=== PATIENT | female | born 1980 | race Caucasian/White ===

== ENCOUNTER 2019-12-19 22:31 | Emergency (ER) | payer OTHER ==
[~2019-12-19] VITALS: Ht 157.5 cm; Wt 65.0 kg
--- NOTE | 2019-12-19 23:15 | PHYS DOC ---
Past Medical History Past Medical History: No Pertinent History Past Surgical History: Cholecystectomy Smoking Status: Current Every Day Smoker Alcohol Use: None Drug Use: None General Adult EDM: Chief Complaint: FLANK PAIN HPI: HPI: The history was obtained from the patient. Patient is a 39-year-old female with no reported PMH who presents with a chief complaint of right flank pain. Patient states the flank pain is been present all day. States it is somewhat difficult it comfortable. She states she has a history of UTI but this pain seems more significant than usual. She does note some increased urgency to void and dysuria. Denies hematuria. Has tried naproxen at home with minimal relief. She does note some foul-smelling white vaginal discharge that is abnormal for her. States she is sexually active with one partner only. Denies history of STD. Denies syncope. Denies previous abdominal surgeries. Does note nausea without vomiting. No other complaints. Review of Systems: Review of Systems: Constitutional: Denies fever or chills. [] Eyes: Denies change in visual acuity. [] HENT: Denies nasal congestion or sore throat. [] Respiratory: Denies cough or shortness of breath. [] Cardiovascular: Denies chest pain or edema. [] GI: Denies abdominal pain, nausea, vomiting, bloody stools or diarrhea. [] : Positive for flank pain, dysuria, vaginal discharge Musculoskeletal: Denies back pain or joint pain. [] Integument: Denies rash. [] Neurologic: Denies headache, focal weakness or sensory changes. [] Endocrine: Denies polyuria or polydipsia. [] Lymphatic: Denies swollen glands. [] Psychiatric: Denies depression or anxiety. [] Heart Score: Risk Factors: Risk Factors: DM, Current or recent (<one month) smoker, HTN, HLP, family history of CAD, obesity. Risk Scores: Score 0 - 3: 2.5% MACE over next 6 weeks - Discharge Home Score 4 - 6: 20.3% MACE over next 6 weeks - Admit for Clinical Observation Score 7 - 10: 72.7% MACE over next 6 weeks - Early Invasive Strategies Allergies: Allergies: Allergies Coded Allergies Type Severity Reaction Last Updated Verified No Known Drug Allergies 02/19/15 No Physical Exam: PE: Constitutional: Well developed, well nourished, no acute distress, non-toxic appearance. [] HENT: Normocephalic, atraumatic, bilateral external ears normal, oropharynx moist, no oral exudates, nose normal. [] Eyes: PERRLA, EOMI, conjunctiva normal, no discharge. [] Neck: Normal range of motion, no tenderness, supple, no stridor. [] Cardiovascular:Heart rate regular rhythm, no murmur [] Lungs & Thorax: Bilateral breath sounds clear to auscultation [] Abdomen: Soft, nontender, nonacute abdomen. No involuntary guarding or rigidity noted. No acute peritonitis. Skin: Warm, dry, no erythema, no rash. [] Back: Moderate right CVA tenderness Extremities: No tenderness, no cyanosis, no clubbing, ROM intact, no edema. [] Neurologic: Alert and oriented X 3, normal motor function, normal sensory function, no focal deficits noted. [] Psychologic: Affect normal, judgement normal, mood normal. [] Current Patient Data: Labs: Laboratory Tests Test 12/19/19 22:32 12/19/19 23:15 12/19/19 23:20 Urine Collection Type Unknown Urine Color Yellow Urine Clarity Cloudy Urine pH 6.0 Urine Specific [place] 1.015 Urine Protein 100 mg/dL Urine Glucose (UA) Negative mg/dL Urine Ketones (Stick) Negative mg/dL Urine Blood Large Urine Nitrite Positive Urine Bilirubin Negative Urine Urobilinogen Dipstick 1.0 mg/dL Urine Leukocyte Esterase Large Urine RBC 3-5 /HPF Urine WBC Tntc /HPF Urine Bacteria Many /HPF Bedside Urine HCG, Qualitative Hcg negative White Blood Count 18.3 x10^3/uL Red Blood Count 3.98 x10^6/uL Hemoglobin 13.3 g/dL Hematocrit 38.5 % Mean Corpuscular Volume 97 fL Mean Corpuscular Hemoglobin 33 pg Mean Corpuscular Hemoglobin Concent 34 g/dL Red Cell Distribution Width 13.5 % Platelet Count 238 x10^3/uL Neutrophils (%) (Auto) 84 % Lymphocytes (%) (Auto) 10 % Monocytes (%) (Auto) 6 % Eosinophils (%) (Auto) 0 % Basophils (%) (Auto) 0 % Neutrophils # (Auto) 15.4 x10^3/uL Lymphocytes # (Auto) 1.7 x10^3/uL Monocytes # (Auto) 1.1 x10^3/uL Eosinophils # (Auto) 0.0 x10^3/uL Basophils # (Auto) 0.0 x10^3/uL Segmented Neutrophils % 80 % Band Neutrophils % 4 % Lymphocytes % 11 % Monocytes % 5 % Platelet Estimate Adequate Sodium Level 135 mmol/L Potassium Level 3.5 mmol/L Chloride Level 101 mmol/L Carbon Dioxide Level 23 mmol/L Anion Gap 11 Blood Urea Nitrogen 17 mg/dL Creatinine 0.8 mg/dL Estimated GFR (Cockcroft-Gault) 80.3 BUN/Creatinine Ratio 21 Glucose Level 114 mg/dL Calcium Level 9.0 mg/dL Total Bilirubin 0.4 mg/dL Aspartate Amino Transf (AST/SGOT) 13 U/L Alanine Aminotransferase (ALT/SGPT) 17 U/L Alkaline Phosphatase 77 U/L Total Protein 7.0 g/dL Albumin 3.0 g/dL Albumin/Globulin Ratio 0.8 Lipase 97 U/L Current Medications Medications (Trade) Dose Ordered Sig/Lon Route PRN Reason Start Time Stop Time Status Last Admin Dose Admin Sodium Chloride 1,000 ml @ 1,000 mls/hr 1X ONCE IV 12/19/19 23:30 12/20/19 00:29 DC 12/19/19 23:32 Metoclopramide HCl (Reglan) 10 mg 1X ONCE PO 12/19/19 23:30 12/19/19 23:31 DC 12/19/19 23:32 Morphine Sulfate (Morphine Sulfate) 4 mg 1X ONCE IV 12/19/19 23:30 12/19/19 23:31 DC 12/19/19 23:32 Fluconazole (Diflucan) 100 mg 1X ONCE PO 12/19/19 23:45 12/19/19 23:46 DC 12/20/19 00:15 Cefazolin Sodium (Ancef) 1 gm 1X ONCE IVP 12/20/19 01:15 12/20/19 01:16 DC Vital Signs: Vital Signs Date Time Temp Pulse Resp B/P (MAP) Pulse Ox O2 Delivery O2 Flow Rate FiO2 12/19/19 23:02 101.1 124 16 111/62 (78) 100 Room Air 101.1 EKG: EKG: [] Radiology/Procedures: Radiology/Procedures: [] Course & Med Decision Making: Course & Med Decision Making Pertinent Labs and Imaging studies reviewed. (See chart for details) [] Patient is an overall nontoxic-appearing 39-year-old female presents with chief complaint of dysuria and right flank pain. Initial vital signs notable for fever. Exam noted above. Urinalysis is consistent with infection. CBC notes a leukocytosis of 18,000. Remainder of labs unremarkable. I do feel clinically the patient is experiencing acute pyelonephritis. She was given 1 g of Ancef. Urine cultures obtained and pending. I did discuss results of labs with the patient in great detail. I did discuss the possibility of hospitalizat ion versus discharge home with close follow-up. She is electing for discharge home with oral antibiotics. She states that she does have follow-up with her primary care physician in 12 hours. Overall I do feel this is appropriate. She has tolerated p.o. Her vital signs remained stable. She will be discharged home with oral antibiotics and medicine for symptomatic care. Strict 12-24 return precautions were discussed and understood. Patient remains nontoxic and is appropriate for home. Dragon Disclaimer: Dragon Disclaimer: This electronic medical record was generated, in whole or in part, using a voice recognition dictation system. Departure Departure Impression: Primary Impression: Pyelonephritis Disposition: HOME, SELF-CARE Condition: STABLE Referrals: SANDRA JOSE DO (PCP) Patient Instructions: Pyelonephritis, Adult Additional Instructions: Please follow-up with your primary care physician later today. Please return the emergency department should you have symptoms including but not limited to worsening back pain, continued fevers, vomiting. Scripts Hydrocodone/Apap 5-325 (NORCO 5-325 TABLET) 1 Each Tablet 1-2 EACH PO PRN Q6HRS PRN for PAIN, #10 as needed for pain Prov: GLORIA JONES DO 12/20/19 Ondansetron Hcl (ZOFRAN) 4 Mg Tablet 4 MG PO PRN TID PRN for NAUSEA, #9 nausea/vomiting Prov: GLORIA JONES DO 12/20/19 Cephalexin (KEFLEX) 500 Mg Capsule 1 CAP PO BID for 14 Days, #28 CAP 0 Refills Prov: GLORIA JONES DO 12/20/19 Justicifation of Admission Dx: Justifications for Admission: Justification of Admission Dx: N/A GLORIA JONES DO Dec 19, 2019 23:15
[2019-12-19 23:21] LABS: BILIRUBIN,URINE NEGATIVE (NEG); CLARITY,URINE CLOUDY; COLOR,URINE YELLOW; NITRITE,URINE POSITIVE (NEG); PROTEIN,URINE 100 mg/dL (NEG-TRACE)
[2019-12-19 23:27] LABS: BASO % 0 % (0-3); EOS % 0 % (0-3); HEMATOCRIT 38.5 % (36.0-47.0); HEMOGLOBIN 13.3 g/dL (12.0-15.5); LYMPH # 1.7 x10^3/uL (1.0-4.8); LYMPH % 10 % (24-48); MEAN CORPUSCULAR HEMOGLOBIN 33 pg (25-35); MEAN CORPUSCULAR HGB CONC 34 g/dL (31-37); MEAN CORPUSCULAR VOLUME 97 fL (79-100); MONO # 1.1 x10^3/uL (0.0-1.1); MONO % 6 % (0-9); NEUT # 15.4 x10^3/uL (1.8-7.7); NEUT % 84 % (31-73); PLATELET COUNT 238 x10^3/uL (140-400); RED BLOOD COUNT 3.98 x10^6/uL (3.50-5.40); RED CELL DISTRIBUTION WIDTH 13.5 % (11.5-14.5); WHITE BLOOD COUNT 18.3 x10^3/uL (4.0-11.0)
[2019-12-19 23:27] LABS: BACTERIA,URINE MANY /HPF (0-FEW); WBC,URINE TNTC /HPF (0-4)
[2019-12-19] MEDS ORDERED: METOCLOPRAMIDE 10 MG TABLET. PO ONE (23:30)
[2019-12-19] MEDS ORDERED: IV NORMAL SALINE 1000ML BAG 1,000 ML IV ONE (23:30)
[2019-12-19] MEDS ORDERED: MORPHINE SULFATE 4 MG/ML VIAL. IV ONE (23:30)
[2019-12-19 23:34] LABS: CREATININE 0.8 mg/dL (0.6-1.0); GFR 80.3; POTASSIUM 3.5 mmol/L (3.5-5.1)
[2019-12-19 23:40] LABS: ALBUMIN/GLOBULIN RATIO 0.8 (1.0-1.7); TOTAL BILIRUBIN 0.4 mg/dL (0.2-1.0)
[2019-12-19] MEDS ORDERED: FLUCONAZOLE 100 MG TABLET. PO ONE (23:45)
[2019-12-19 23:53] LABS: % BANDS 4 % (0-9); % LYMPHS 11 % (24-48); % MONOS 5 % (0-10); % SEGS 80 % (35-66); PLT ESTIMATE ADEQUATE (ADEQUATE)
[2019-12-20] MEDS ORDERED: ceFAZolin SODIUM IV Push 1 GM VIAL. IVP ONE (01:15)
[2019-12-20] MEDS ORDERED: ONDA4TAB7 PO (01:30)
[2019-12-20] MEDS ORDERED: HYDR-3164 PO (01:30)
[2019-12-20] MEDS ORDERED: CEPH-264 PO (01:30)
[2019-12-20 02:05] VITALS: BP 99/55
== END 2019-12-20 02:10 | disposition home or self-care (01) ==
LOC: ER 22:31
DX: N12 Tubulo-interstitial nephritis, not specified as acute or chronic (principal); F17.200 Nicotine dependence, unspecified, uncomplicated; Z90.49 Acquired absence of other specified parts of digestive tract
CPT/HCPCS: 36415; 80053; 81001; 81025; 83690; 85007; 85025; 87086; 87491; 87591; 96361; 96374; 96375; 99284; J0690; J2270; J7030; Q0111

== ENCOUNTER 2021-01-05 12:41 | Emergency (ER) | payer OTHER ==
[~2021-01-05] VITALS: Ht 157.5 cm; Wt 67.2 kg
[~2021-01-05 12:41] MED LIST: ACET325T9 PO; AMOX1TAB11 PO; BUPR150T21 PO; CEPH-264 PO; DESV50TA20 PO; GABA300C18 PO; HYDR-3164 PO; LACT1CAP19 PO; NORT25CA PO; ONDA4TAB7 PO
[2021-01-05 15:43] LABS: BILIRUBIN,URINE NEGATIVE (NEG); CLARITY,URINE CLOUDY; COLOR,URINE YELLOW; NITRITE,URINE POSITIVE (NEG); PH,URINE 7.5 (<5.0-8.0); PROTEIN,URINE NEGATIVE (NEG-TRACE); UROBILINOGEN,URINE 0.2 mg/dL (0.2 mg/dL)
[2021-01-05] MEDS ORDERED: KETOROLAC 30 MG/ML VIAL. IVP ONE (15:45)
[2021-01-05] MEDS ORDERED: fentaNYL PF VIAL 100 MCG/2 ML VIAL IVP ONE ×2 (15:45→17:30)
[2021-01-05] MEDS ORDERED: IV NORMAL SALINE 1000ML BAG 1,000 ML IV SCH (15:45)
[2021-01-05 15:49] LABS: BACTERIA,URINE MANY /HPF (0-FEW); WBC,URINE TNTC /HPF (0-4)
--- NOTE | 2021-01-05 15:50 | PHYS DOC ---
Past Medical History Past Medical History: Anxiety, Depression Additional Past Medical Histor: kidney infection (JOLLY GAMBLE RESIDENTIAL INSURANCE INSPECTOR) Past Surgical History: Cholecystectomy, Tubal ligation, Other Additional Past Surgical Histo: cervical surgery (JOLLY GAMBLE RESIDENTIAL INSURANCE INSPECTOR) Smoking Status: Current Some Day Smoker Alcohol Use: Occasionally Drug Use: None (JOLLY GAMBLE APRN) General Adult EDM: Chief Complaint: FLANK PAIN HPI: HPI: Patient is a 40 year old female who presents with 1 week of urinary frequency and 3 days of right lower flank pain that does wrap around to her right side. States that sharp and aching. She rates her pain 10 out of 10. She is not taking any medication for her pain or her symptoms. She states when she wiped she did notice a little blood on the toilet paper. She has had pyelonephritis in the past. She denies chest pain, shortness of breath, fever, nausea, vomiting, diarrhea, constipation, dizziness, headache, body aches, cough, numbness or tingling, focal weakness. She is a history of pyelonephritis, depression, cholecystectomy, cervical surgery, smoker, tubal ligation. (JOLLY GAMBLE RESIDENTIAL INSURANCE INSPECTOR) Review of Systems: Review of Systems: Constitutional: Denies fever or chills. [] Eyes: Denies change in visual acuity. [] HENT: Denies nasal congestion or sore throat. [] Respiratory: Denies cough or shortness of breath. [] Cardiovascular: Denies chest pain or edema. [] GI: + Right side abdominal pain, denies nausea, vomiting, bloody stools or diarrhea. [] : Denies dysuria. + Urinary frequency [] Musculoskeletal: + Right flank back pain or joint pain. [] Integument: Denies rash. [] Neurologic: Denies headache, focal weakness or sensory changes. [] Endocrine: Denies polyuria or polydipsia. [] Lymphatic: Denies swollen glands. [] Psychiatric: Denies depression or anxiety. [] (JOLLY GAMBLE RESIDENTIAL INSURANCE INSPECTOR) Heart Score: C/O Chest Pain: No (JOLLY GAMBLE APRN) Allergies: Allergies: Allergies Coded Allergies Type Severity Reaction Last Updated Verified No Known Drug Allergies 01/05/21 No (JOLLY GAMBLE RESIDENTIAL INSURANCE INSPECTOR) Physical Exam: PE: Constitutional: Well developed, well nourished, no acute distress, non-toxic appearance. [] HENT: Normocephalic, atraumatic, bilateral external ears normal, oropharynx mois t, no oral exudates, nose normal. [] Eyes: PERRLA, EOMI, conjunctiva normal, no discharge. [] Neck: Normal range of motion, no tenderness, supple, no stridor. [] Cardiovascular:Heart rate regular rhythm, no murmur [] Lungs & Thorax: Bilateral breath sounds clear to auscultation [] Abdomen: Bowel sounds normal, soft, no tenderness, no masses, no pulsatile masses. [] Skin: Warm, dry, no erythema, no rash. [] Back: No tenderness, right CVA tenderness. [] Extremities: No tenderness, no cyanosis, no clubbing, ROM intact, no edema. [] Neurologic: Alert and oriented X 3, normal motor function, normal sensory function, no focal deficits noted. [] Psychologic: Affect normal, judgement normal, mood normal. [] (JOLLY GAMBLE APRN) Current Patient Data: Labs: Laboratory Tests Test 01/05/21 15:36 POC Urine HCG, Qualitative Hcg negative (Negative) Vital Signs: Vital Signs Date Time Temp Pulse Resp B/P (MAP) Pulse Ox O2 Delivery O2 Flow Rate FiO2 01/05/21 15:35 100.0 91 20 113/62 (79) 100 Room Air 100.0 (JOLLY GAMBLE APRN) EKG: EKG: [] (JOLLY GAMBLE APRN) Radiology/Procedures: Radiology/Procedures: [] Impression: [facility] [address] [place] [address] IMAGING REPORT Signed PATIENT: JALEEL MIRANDA NACCOUNT: [id number] : 1980 LOCATION: ER AGE: 40 SEX: F EXAM STATUS: REG ER ORD. PHYSICIAN: JOLLY GAMBLE APRN REASON: right flank pain with urinary frequency PROCEDURE: CT ABDOMEN PELVIS WO CONTRAST Site ID: [id number] EXAMINATION: CT ABDOMEN+PELVIS WO. Technique: Axial images with coronal and sagittal reconstructions are performed of abdomen and pelvis without contrast. One or more of the following radiation dose reduction techniques was used: automated exposure control, adjustment of mA and/or KV according to patient size, and/or utilization of iterative reconstruction technique. HISTORY: 40 years Female Reason: right flank pain with urinary frequency . COMPARISON: January 13, 2020. FINDINGS: There is a mild the perinephric stranding on the right side and the minimal prominence of the right the renal pelvis and proximal ureter with no obstructive stone identified. Calcifications in the pelvis appears to be related to phleboliths with no definite stone in the ureter seen. The findings could be related to pyelonephritis or recent passage of a stone. The left kidney demonstrate no hydronephrosis. The liver, pancreas, and adrenal glands appear unremarkable. The spleen is not enlarged with calcified granulomas seen. There are cholecystectomy clips seen. The lung bases are clear. No free fluid or fluid collection in the abdomen or pelvis is seen. Moderate amounts of fecal material noted in the colon. No dilated bowel loops to suggest obstruction. The adnexa on the right side appear prominent could relate to underlying prominent follicles. The osseous structures appear grossly unremarkable. IMPRESSION: 1. Findings the right kidney and proximal ureter could relate to pyelonephritis or recent passage of a stone. 2. Prominence of the right adnexa probably related to dominant follicles or cyst. Electronically signed by: Marta Lloyd MD (01/05/2021 4:40 PM) [id number] DICTATED and SIGNED BY: MARTA LLOYD MD DATE: 01/05/21 [id number] (JOLLY GAMBLE APRN) Course & Med Decision Making: Course & Med Decision Making Pertinent Labs and Imaging studies reviewed. (See chart for details) See HPI. Alert and oriented x4. Ambulatory steady gait. Speaks in full clear sentences. Skin pink warm and dry. Abdomen soft and nontender. Right CVA tenderness. Temperature is right at 100 in the ED. She is given Tylenol, Toradol, fentanyl, and 2L bolus of normal saline. Patient is tolerating p.o. intake. CT shows pyelonephritis. No kidney enzyme elevation. Patient is given Rocephin 1 g IV. [] (JOLLY GAMBLE APRN) Dragjulius Disclaimer: Dragon Disclaimer: This electronic medical record was generated, in whole or in part, using a voice recognition dictation system. (JOLLY GAMBLE APRN) Departure Departure Impression: Primary Impression: Pyelonephritis Condition: STABLE Referrals: SANDRA JOSE DO (PCP) Patient Instructions: Pyelonephritis, Adult Additional Instructions: Follow-up with primary care provider in the next week or so to have your urine rechecked to make sure your infection is gone. Take antibiotic as prescribed and with food. Drink plenty of fluids. Take ibuprofen for your pain. I did write you for some hydrocodone and just remember that this will make you sleepy so you should not drive or drink alcohol but she can take ibuprofen with this medication just do not take more Tylenol with it. If you begin vomiting and unable to keep down fluid or your symptoms are getting worse return to the emergency room. Scripts Cephalexin (KEFLEX) 500 Mg Capsule 1 CAP PO TID, #30 CAP Prov: JOLLY GAMBLE APRN 01/05/21 Hydrocodone Bit/Acetaminophen (HYDROCODONE-APAP 5-325 ) 1 Tab Tablet 1 TAB PO PRN Q6HRS PRN for PAIN, #10 TAB 0 Refills Prov: JOLLY GAMBLE APRN 01/05/21 Attending Signature Attending Signature I have reviewed the PA/AIRCRAFT CABIN CLEANER's note and plan of care. I was available for consultation as needed during the patient's visit in the emergency department. I agree with the clinical impression, plan, and disposition. (KARYN VELAZCO DO) JOLLY GAMBLE APRN Jan 05, 2021 15:50 KARYN VELAZCO DO Jan 08, 2021 22:38
[2021-01-05 16:00] VITALS: BP 115/56
[2021-01-05] MEDS ORDERED: ACETAMINOPHEN 500 MG TABLET PO ONE (16:00)
[2021-01-05 16:10] LABS: BASO # 0.1 x10^3/uL (0.0-0.2); BASO % 0 % (0-3); EOS % 0 % (0-3); HEMOGLOBIN 13.6 g/dL (12.0-15.5); LYMPH # 1.7 x10^3/uL (1.0-4.8); LYMPH % 12 % (24-48); MEAN CORPUSCULAR HEMOGLOBIN 34 pg (25-35); MEAN CORPUSCULAR HGB CONC 35 g/dL (31-37); MEAN CORPUSCULAR VOLUME 96 fL (79-100); MONO # 1.1 x10^3/uL (0.0-1.1); MONO % 8 % (0-9); NEUT # 11.2 x10^3/uL (1.8-7.7); NEUT % 80 % (31-73); PLATELET COUNT 263 x10^3/uL (140-400); RED BLOOD COUNT 4.05 x10^6/uL (3.50-5.40); RED CELL DISTRIBUTION WIDTH 12.7 % (11.5-14.5); WHITE BLOOD COUNT 14.1 x10^3/uL (4.0-11.0)
[2021-01-05 16:20] LABS: CALCIUM 8.7 mg/dL (8.5-10.1); CREATININE 0.7 mg/dL (0.6-1.0); GFR 93.2; POTASSIUM 3.8 mmol/L (3.5-5.1)
[2021-01-05 16:26] LABS: ALBUMIN 3.2 g/dL (3.4-5.0); ALBUMIN/GLOBULIN RATIO 0.9 (1.0-1.7); TOTAL BILIRUBIN 0.4 mg/dL (0.2-1.0); TOTAL PROTEIN 6.7 g/dL (6.4-8.2)
--- NOTE | 2021-01-05 16:43 | RAD ---
Site ID: [id number] EXAMINATION: CT ABDOMEN+PELVIS WO. Technique: Axial images with coronal and sagittal reconstructions are performed of abdomen and pelvis without contrast. One or more of the following radiation dose reduction techniques was used: automated exposure control , adjustment of mA and/or KV according to patient size, and/or utilization of iterative reconstructio n technique. HISTORY: 40 years Female Reason: right flank pain with urinary frequency . COMPARISON: January 13, 2020. FINDINGS: There is a mild the perinephric stranding on the right side and the minimal prominence of the right t he renal pelvis and proximal ureter with no obstructive stone identified. Calcifications in the pelvi s appears to be related to phleboliths with no definite stone in the ureter seen. The findings could be related to pyelonephritis or recent passage of a stone. The left kidney demonstrate no hydronephro sis. The liver, pancreas, and adrenal glands appear unremarkable. The spleen is not enlarged with calcifie d granulomas seen. There are cholecystectomy clips seen. The lung bases are clear. No free fluid or fluid collection in the abdomen or pelvis is seen. Moderate amounts of fecal materia l noted in the colon. No dilated bowel loops to suggest obstruction. The adnexa on the right side appear prominent could relate to underlying prominent follicles. The osseous structures appear grossly unremarkable. IMPRESSION: 1. Findings the right kidney and proximal ureter could relate to pyelonephritis or recent passage of a stone. 2. Prominence of the right adnexa probably related to dominant follicles or cyst. Electronically signed by: Alberto Lloyd MD (01/05/2021 4:40 PM) [id number]
[2021-01-05] MEDS ORDERED: cefTRIAXone IV Push 1 GM VIAL. IVP ONE (16:45)
[2021-01-05] MEDS ORDERED: IV NORMAL SALINE 1000ML BAG 1,000 ML IV ONE (16:45)
[2021-01-05] MEDS ORDERED: CEPH500C PO (17:47)
[2021-01-05] MEDS ORDERED: HYDR-2761 PO (17:47)
== END 2021-01-05 19:16 | disposition home or self-care (01) ==
LOC: ER 12:41
DX: N12 Tubulo-interstitial nephritis, not specified as acute or chronic (principal); F17.200 Nicotine dependence, unspecified, uncomplicated; Z90.49 Acquired absence of other specified parts of digestive tract; Z98.51 Tubal ligation status
CPT/HCPCS: 36415; 74176; 80053; 81001; 81025; 83605; 83690; 85025; 87040; 87086; 96361; 96374; 96375; 96376; 99285; J0696; J1885; J3010; J7030; 87077; 87186

== ENCOUNTER 2021-02-23 14:10 | Emergency (ER) | payer OTHER ==
[~2021-02-23] VITALS: Ht 157.5 cm; Wt 63.0 kg
[~2021-02-23 14:10] MED LIST changes: +CEPH500C PO; +HYDR-2761 PO
[2021-02-23 15:09] LABS: BILIRUBIN,URINE NEGATIVE (NEG); CLARITY,URINE CLOUDY; COLOR,URINE YELLOW; NITRITE,URINE NEGATIVE (NEG); PROTEIN,URINE NEGATIVE (NEG-TRACE); UROBILINOGEN,URINE 0.2 mg/dL (0.2 mg/dL)
[2021-02-23 15:10] LABS: BASO % 0 % (0-3); EOS % 0 % (0-3); HEMATOCRIT 40.7 % (36.0-47.0); HEMOGLOBIN 14.1 g/dL (12.0-15.5); LYMPH # 1.3 x10^3/uL (1.0-4.8); LYMPH % 9 % (24-48); MEAN CORPUSCULAR HEMOGLOBIN 33 pg (25-35); MEAN CORPUSCULAR HGB CONC 35 g/dL (31-37); MEAN CORPUSCULAR VOLUME 96 fL (79-100); MONO # 0.9 x10^3/uL (0.0-1.1); MONO % 7 % (0-9); NEUT % 84 % (31-73); PLATELET COUNT 285 x10^3/uL (140-400); RED BLOOD COUNT 4.23 x10^6/uL (3.50-5.40); RED CELL DISTRIBUTION WIDTH 13.6 % (11.5-14.5); WHITE BLOOD COUNT 14.3 x10^3/uL (4.0-11.0)
[2021-02-23] MEDS ORDERED: IV NORMAL SALINE 1000ML BAG 1,000 ML IV ONE (15:15)
[2021-02-23] MEDS ORDERED: KETOROLAC 30 MG/ML VIAL. IVP ONE (15:15)
[2021-02-23 15:22] LABS: BACTERIA,URINE MODERATE /HPF (0-FEW); TRICHOMONAS,URINE PRESENT
[2021-02-23 15:28] LABS: CALCIUM 8.7 mg/dL (8.5-10.1); CREATININE 0.6 mg/dL (0.6-1.0); GFR 111.3; POTASSIUM 4.1 mmol/L (3.5-5.1)
[2021-02-23] MEDS ORDERED: CONTRAST GIVEN. MC PRN (15:30)
[2021-02-23] MEDS ORDERED: IOHEXOL 300 MG/ML 100ML VIAL. IV ONE (15:30)
[2021-02-23 15:33] VITALS: BP 129/60
[2021-02-23 15:34] LABS: ALBUMIN 3.7 g/dL (3.4-5.0); ALBUMIN/GLOBULIN RATIO 1.2 (1.0-1.7); TOTAL BILIRUBIN 0.5 mg/dL (0.2-1.0); TOTAL PROTEIN 6.9 g/dL (6.4-8.2)
--- NOTE | 2021-02-23 15:59 | PHYS DOC ---
Past Medical History Past Medical History: Anxiety, Depression Additional Past Medical Histor: kidney infection, ovarian cyst Past Surgical History: Cholecystectomy, Tubal ligation, Other Additional Past Surgical Histo: cervical surgery Smoking Status: Current Every Day Smoker Alcohol Use: Occasionally Drug Use: None General Adult EDM: Chief Complaint: FLANK PAIN HPI: HPI: Patient is a 40-year-old female that presents today with a 2-day complaint of right flank pain. Patient states she has had right flank pain for about 2 days, does report chills, does not report having fatmata blood in her urine. She states her last normal menstrual period was at the end of January early February, she does report having a white vaginal discharge. She is in a monogamous relationship and does not use condoms for protection she does have a history of tubal ligation. Review of Systems: Review of Systems: Constitutional: Denies fever or chills. [] Eyes: Denies change in visual acuity. [] HENT: Denies nasal congestion or sore throat. [] Respiratory: Denies cough or shortness of breath. [] Cardiovascular: Denies chest pain or edema. [] GI: abdominal pain, denies nausea, vomiting, bloody stools or diarrhea. [] : Denies dysuria. [] Musculoskeletal: Right flank pain Integument: Denies rash. [] Neurologic: Denies headache, focal weakness or sensory changes. [] Endocrine: Denies polyuria or polydipsia. [] Lymphatic: Denies swollen glands. [] Psychiatric: Denies depression or anxiety. [] Heart Score: C/O Chest Pain: N/A Risk Factors: Risk Factors: DM, Current or recent (<one month) smoker, HTN, HLP, family history of CAD, obesity. Risk Scores: Score 0 - 3: 2.5% MACE over next 6 weeks - Discharge Home Score 4 - 6: 20.3% MACE over next 6 weeks - Admit for Clinical Observation Score 7 - 10: 72.7% MACE over next 6 weeks - Early Invasive Strategies Current Medications: Current Medications Medications (Trade) Dose Ordered Sig/Lon Start Time Stop Time Status Last Admin Dose Admin Info (CONTRAST GIVEN -- Rx MONITORING) 1 each PRN DAILY PRN 02/23/21 15:30 02/25/21 15:29 Iohexol (Omnipaque 300 Mg/ml) 75 ml 1X ONCE 02/23/21 15:30 02/23/21 15:31 DC Ketorolac Tromethamine (Toradol 30mg Vial) 30 mg 1X ONCE 02/23/21 15:15 02/23/21 15:16 DC 02/23/21 15:08 30 MG Sodium Chloride 1,000 ml @ 999 mls/hr 1X ONCE 02/23/21 15:15 02/23/21 16:15 02/23/21 15:08 999 MLS/HR Allergies: Allergies: Allergies Coded Allergies Type Severity Reaction Last Updated Verified No Known Drug Allergies 01/05/21 No Physical Exam: PE: Constitutional: Well developed, well nourished, mild distress, non-toxic appearance. [] HENT: Normocephalic, atraumatic, bilateral external ears normal, oropharynx moist, no oral exudates, nose normal. [] Eyes: PERRLA, EOMI, conjunctiva normal, no discharge. [] Neck: Normal range of motion, no tenderness, supple, no stridor. [] Cardiovascular:Heart rate regular rhythm, no murmur [] Lungs & Thorax: Bilateral breath sounds clear to auscultation [] Abdomen: Abdomen soft nontender, bowel sounds positive in all 4 quadrants Skin: Warm, dry, no erythema, no rash. [] Back: No tenderness, right CVA tenderness. [] Extremities: No tenderness, no cyanosis, no clubbing, ROM intact, no edema. [] Neurologic: Alert and oriented X 3, normal motor function, normal sensory function, no focal deficits noted. [] Psychologic: Affect normal, judgement normal, mood normal. [] Current Patient Data: Labs: Laboratory Tests Test 02/23/21 14:28 02/23/21 14:29 02/23/21 15:05 Urine Collection Type Unknown Urine Color Yellow Urine Clarity Cloudy Urine pH 6.0 (<5.0-8.0) Urine Specific [place] 1.015 (1.000-1.030) Urine Protein Negative mg/dL (NEG-TRACE) Urine Glucose (UA) Negative mg/dL (NEG) Urine Ketones (Stick) Trace mg/dL (NEG) Urine Blood Large (NEG) Urine Nitrite Negative (NEG) Urine Bilirubin Negative (NEG) Urine Urobilinogen Dipstick 0.2 mg/dL (0.2 mg/dL) Urine Leukocyte Esterase Moderate (NEG) Urine RBC 6-10 /HPF (0-2) Urine WBC 11-20 /HPF (0-4) Urine Squamous Epithelial Cells Many /LPF Urine Bacteria Moderate /HPF (0-FEW) Urine Mucus Mod /LPF Urine Trichomonas Present POC Urine HCG, Qualitative Hcg negative (Negative) White Blood Count 14.3 x10^3/uL (4.0-11.0) H Red Blood Count 4.23 x10^6/uL (3.50-5.40) Hemoglobin 14.1 g/dL (12.0-15.5) Hematocrit 40.7 % (36.0-47.0) Mean Corpuscular Volume 96 fL (79-100) Mean Corpuscular Hemoglobin 33 pg (25-35) Mean Corpuscular Hemoglobin Concent 35 g/dL (31-37) Red Cell Distribution Width 13.6 % (11.5-14.5) Platelet Count 285 x10^3/uL (140-400) Neutrophils (%) (Auto) 84 % (31-73) H Lymphocytes (%) (Auto) 9 % (24-48) L Monocytes (%) (Auto) 7 % (0-9) Eosinophils (%) (Auto) 0 % (0-3) Basophils (%) (Auto) 0 % (0-3) Neutrophils # (Auto) 12.0 x10^3/uL (1.8-7.7) H Lymphocytes # (Auto) 1.3 x10^3/uL (1.0-4.8) Monocytes # (Auto) 0.9 x10^3/uL (0.0-1.1) Eosinophils # (Auto) 0.0 x10^3/uL (0.0-0.7) Basophils # (Auto) 0.0 x10^3/uL (0.0-0.2) Sodium Level 139 mmol/L (136-145) Potassium Level 4.1 mmol/L (3.5-5.1) Chloride Level 103 mmol/L (98-107) Carbon Dioxide Level 26 mmol/L (21-32) Anion Gap 10 (6-14) Blood Urea Nitrogen 9 mg/dL (7-20) Creatinine 0.6 mg/dL (0.6-1.0) Estimated GFR (Cockcroft-Gault) 111.3 BUN/Creatinine Ratio 15 (6-20) Glucose Level 94 mg/dL (70-99) Calcium Level 8.7 mg/dL (8.5-10.1) Total Bilirubin 0.5 mg/dL (0.2-1.0) Aspartate Amino Transferase (AST) 14 U/L (15-37) L Alanine Aminotransferase (ALT) 19 U/L (14-59) Alkaline Phosphatase 65 U/L (46-116) Total Protein 6.9 g/dL (6.4-8.2) Albumin 3.7 g/dL (3.4-5.0) Albumin/Globulin Ratio 1.2 (1.0-1.7) Lipase 33 U/L (73-393) L Laboratory Tests 02/23/21 15:05 Laboratory Tests 02/23/21 15:05 Vital Signs: Vital Signs Date Time Temp Pulse Resp B/P (MAP) Pulse Ox O2 Delivery O2 Flow Rate FiO2 02/23/21 18:26 90 16 99 Room Air 02/23/21 16:28 16 98 Room Air 02/23/21 15:33 99 16 129/60 (83) 99 Room Air 02/23/21 15:03 107 16 141/74 (96) 99 Room Air 02/23/21 14:32 98.5 109 16 137/71 (93) 100 Room Air 98.5 Vital Signs Date Time Temp Pulse Resp B/P (MAP) Pulse Ox O2 Delivery O2 Flow Rate FiO2 02/23/21 16:28 16 98 Room Air 02/23/21 14:32 98.5 109 16 137/71 (93) 100 Room Air 98.5 EKG: EKG: [] Radiology/Procedures: Radiology/Procedures: REASON: abdominal pain PROCEDURE: CT ABD PELV W/ IV CONTRST ONLY CT of the abdomen and pelvis with contrast 02/23/2021 4:04 PM Indication: Reason: abdominal pain Comparison study: CT of the abdomen and pelvis without contrast December 28, 2020 Technique: Multidetector CT imaging of the abdomen and pelvis was performed following the administration of IV contrast. Findings: The partially visualized lung bases demonstrate no acute abnormality. The liver, gallbladder, spleen, bilateral adrenal glands, left kidney and pancreas, are grossly unremarkable. There is a focal area of hypodensity in the superior right kidney measuring 1.9 cm in diameter. The appearance is nonspecific. Differential considerations include a focal area of inflammation/infection i.e. lobar nephronia, early small abscess, or mass. There is no bowel obstruction. No evidence of acute inflammatory change involving visualized bowel is identified. Appendix is visualized and unremarkab le in appearance. Bladder is grossly unremarkable. No free fluid or free air is seen in the abdomen or pelvis. There is a 3.4 cm cystic structure left adnexa likely physiologic ovarian cyst. No acute osseous changes are identified. Impression: 1.9 cm area of hypodensity in the superior right kidney. The appearance is nonspecific. Differential considerations include a focal area of inflammation/infection i.e. lobar nephronia, early small abscess, or mass. Correlate with clinical findings and consider follow-up renal protocol MRI as clinically indicated. CT DOSING PQRS STATEMENT: One or more of the following individualized dose reduction techniques were utilized for this examination: 1. Automated exposure control 2. Adjustment of the mA and/or kV according to patient size 3. Use of iterative reconstruction technique Electronically signed by: Odell Jones MD (02/23/2021 4:12 PM) [id number][] Course & Med Decision Making: Course & Med Decision Making Pertinent Labs and Imaging studies reviewed. (See chart for details) Spoke to patient about results will give IV Rocephin here will send home patient with cefdinir and also switched treat her with Flagyl for her trichomonas in her urine patient is agreeable with discharge patient instructed to return if increased pain, fever, increased weakness, her symptoms get worse [] Patient was given 2 g of Flagyl patient vomited the entire dose up, will send prescription for Flagyl 500 mg twice daily for 7 days for trichomonas to her pharmacy [facility] Disclaimer: Laila Disclaimer: This electronic medical record was generated, in whole or in part, using a voice recognition dictation system. Departure Departure Impression: Primary Impression: Pyelonephritis Additional Impression: Trichomonas vaginalis infection Disposition: HOME / SELF CARE / HOMELESS Condition: STABLE Referrals: SANDRA JOSE DO (PCP) Patient Instructions: Pyelonephritis, Adult, Trichomoniasis Additional Instructions: Take antibiotics as prescribed until completely done Increase by mouth fluids avoid caffeine, or alcohol Increase fluids especially water May take Tylenol and/or ibuprofen as needed for pain Follow-up with your primary care by phone tomorrow Return to the emergency department for increased pain, fever uncontrolled by Tylenol and/or ibuprofen, or inability to keep liquids down Scripts Metronidazole (FLAGYL) 375 Mg Capsule 500 MG PO BID for 7 Days, #14 TAB Prov: ANNALISE BRUNER [employer] 02/23/21 Cefdinir (CEFDINIR) 300 Mg Capsule 1 CAP PO BID for pyelonephritis, #20 CAP Prov: ANNALISE BRUNER [employer] 02/23/21 ANNALISE BRUNER [employer] Feb 23, 2021 15:58
--- NOTE | 2021-02-23 16:14 | RAD ---
CT of the abdomen and pelvis with contrast 02/23/2021 4:04 PM Indication: Reason: abdominal pain Comparison study: CT of the abdomen and pelvis without contrast December 28, 2020 Technique: Multidetector CT imaging of the abdomen and pelvis was performed following the administrat ion of IV contrast. Findings: The partially visualized lung bases demonstrate no acute abnormality. The liver, gallbladder, spleen, bilateral adrenal glands, left kidney and pancreas, are grossly unrem arkable. There is a focal area of hypodensity in the superior right kidney measuring 1.9 cm in diameter. The a ppearance is nonspecific. Differential considerations include a focal area of inflammation/infection i.e. lobar nephronia, early small abscess, or mass. There is no bowel obstruction. No evidence of acute inflammatory change involving visualized bowel is identified. Appendix is visualized and unremarkable in appearance. Bladder is grossly unremarkable. No free fluid or free air is seen in the abdomen or pelvis. There is a 3.4 cm cystic structure left a dnexa likely physiologic ovarian cyst. No acute osseous changes are identified. Impression: 1.9 cm area of hypodensity in the superior right kidney. The appearance is nonspecific. D ifferential considerations include a focal area of inflammation/infection i.e. lobar nephronia, early small abscess, or mass. Correlate with clinical findings and consider follow-up renal protocol MRI a s clinically indicated. CT DOSING PQRS STATEMENT: One or more of the following individualized dose reduction techniques were utilized for this examinat ion: 1. Automated exposure control 2. Adjustment of the mA and/or kV according to patient size 3. Use of iterative reconstruction technique Electronically signed by: Odell Jones MD (02/23/2021 4:12 PM) [id number]
[2021-02-23] MEDS ORDERED: fentaNYL PF VIAL 100 MCG/2 ML VIAL ONE (16:25)
[2021-02-23] MEDS ORDERED: fentaNYL PF VIAL 100 MCG/2 ML VIAL IVP ONE (16:30)
[2021-02-23] MEDS ORDERED: cefTRIAXone IV Push 1 GM VIAL. IVP ONE (18:00)
[2021-02-23] MEDS ORDERED: metroNIDAZOLE 500 MG TABLET PO ONE (18:00)
[2021-02-23] MEDS ORDERED: CEFD300C PO (18:14)
[2021-02-23] MEDS ORDERED: METR375C PO (20:44)
== END 2021-02-23 18:32 | disposition home or self-care (01) ==
LOC: ER 14:10
DX: N12 Tubulo-interstitial nephritis, not specified as acute or chronic (principal); A59.01 Trichomonal vulvovaginitis; F17.200 Nicotine dependence, unspecified, uncomplicated
CPT/HCPCS: 36415; 74177; 80053; 81001; 81025; 83690; 85025; 87077; 87086; 87186; 96361; 96374; 96375; 99285; J0696; J1885; J3010; J7030; Q9967